=== PATIENT | female | born 1930 ===

== ENCOUNTER 2018-02-03 19:39 | Emergency (ER) | payer MEDICARE, MEDICAID ==
[2018-02-03 19:55] VITALS: BMI 34.0
[2018-02-03 21:27] LABS: BASO % 0.2 % (0.0-2.0); EOS % 0.1 % (0.0-4.0); HEMOGLOBIN 13.7 g/dL (12.0-16.0); LYMPH # 1.2 K/uL (1.0-4.3); LYMPH % 11.2 % (20.0-40.0); MEAN CELL VOLUME 94.9 fl (81.0-99.0); MEAN CORPUSCULAR HGB CONC 32.6 g/dL (33.0-37.0); MEAN PLATELET VOLUME 9.4 fl (7.2-11.7); MONO # 0.8 K/uL (0.0-0.8); MONO % 7.1 % (0.0-10.0); NEUT # 8.7 K/uL (1.8-7.0); NEUT % 81.4 % (50.0-75.0); RBC 4.44 Mil/uL (3.80-5.20); WHITE BLOOD COUNT 10.7 K/uL (4.8-10.8)
[2018-02-03 21:34] LABS: ALB/GLOB RATIO 1.2 (1.0-2.1); ALBUMIN 4.3 g/dL (3.5-5.0); ALT/SGPT 25 U/L (9-52); AST/SGOT 30 U/L (14-36); BLOOD UREA NITROGEN 13 mg/dl (7-17); CALCIUM 9.4 mg/dL (8.4-10.2); GFR NON-AFRICAN AMERICAN > 60; LIPASE 54 U/L (23-300)
--- NOTE | 2018-02-03 21:55 | ED PDOC ---
HPI: Trauma/Fall - HPI Time Seen by Provider: 02/03/18 20:03 Chief Complaint (Nursing): Trauma Chief Complaint (Provider): Trauma History Per: Patient Injury Occurred (Timing): Today @ (14:00) Associated Symptoms: Dizziness. denies: LOC Additional Complaint(s): Zora Garcia is a 87 year old female with a past medical history of HTN, high triglycerides and hypothyroidism, who presents to the emergency department after sustaining a fall associated with headache, right flank pain and mild bilateral leg pain. Patient states she fell down the stairs at 14:00 today while checking the mail. She reports the fall was mechanical and she had no loss of consciousness. Patient states she does have dizziness but no blurry vision, weakness or nausea. She states she applied ice to her left eye due to swelling. PMD: Dr. Lakshmi Farrell Past Medical History Reviewed: Historical Data, Nursing Documentation, Vital Signs Vital Signs: Last Vital Signs Temp 98.9 F 02/03/18 19:54 Pulse 87 02/03/18 19:54 Resp 16 02/03/18 19:54 BP 141/78 02/03/18 19:54 Pulse Ox 95 02/03/18 19:54 - Medical History PMH: Anxiety, HTN, Hypothyroidism - Surgical History Other surgeries: appendectomy, cataracts, cystocele, rectocele - Family History Family History: States: Unknown Family Hx - Social History Current smoker - smoking cessation education provided: No Ex-Smoker (has not smoked in the last 12 months): No Alcohol: None - Allergies Allergies/Adverse Reactions: Allergies Allergy/AdvReac Type Severity Reaction Status Date / Time iodine AdvReac Verified 02/03/18 21:09 Review of Systems ROS Statement: Except As Marked, All Systems Reviewed And Found Negative Eyes: Negative for: Vision Change Gastrointestinal: Positive for: Abdominal Pain (right flank pain ) Musculoskeletal: Positive for: Leg Pain (bilateral ) Neurological: Positive for: Headache, Dizziness. Negative for: Weakness Physical Exam - Reviewed Nursing Documentation Reviewed: Yes Vital Signs Reviewed: Yes - Physical Exam Appears: Positive for: In Acute Distress (mild painful distress) Eye Exam: Positive for: EOMI, Other (large purple hematoma on left perorbital area) Cardiovascular/Chest: Negative for: Chest Non Tender (TTP to right lateral chest wall with no crepitus or step off; tenderness to right flank; no bruising) Respiratory: Positive for: Normal Breath Sounds. Negative for: Respiratory Distress Gastrointestinal/Abdominal: Positive for: Normal Exam, Soft Extremity: Positive for: Other (bilateral faint ecchymosis anterior thighs ) Neurologic/Psych: Positive for: Alert, Oriented (x3) - Laboratory Results Result Diagrams: 02/03/18 21:17 02/03/18 21:17 - ECG O2 Sat by Pulse Oximetry: 95 (RA) Pulse Ox Interpretation: Normal Medical Decision Making Medical Decision Making: Initial Time: 20:29 Initial Impression: Fall with head injury and flank pain. Differential diagnosis includes but not limited to traumatic brain injury, orbital fracture, intra abdominal injury or rib fracture. Initial Plan: --Tylenol 975 mg PO --Saline lock --Ice --chest abd pelvis CT with IV contrast --cervical spine CT without contrast --Maxillofacial without contrast --Head without contrast --CMP --Lipase --CBC with differential CT Head FINDINGS: BRAIN Chronic periventricular and subcortical microvascular disease is seen. VENTRICLES: There is generalized parenchymal atrophy noted as demonstrated by symmetrical dilatation of ventricles and sulci. ORBITS: The orbits are unremarkable. SINUSES AND MASTOIDS: Right maxillary and bilateral ethmoid sinusitis. BONES: No fracture. SOFT TISSUES: Unremarkable. MISCELLANEOUS: Large periorbital and left forehead hematoma. No acute intracranial pathology. IMPRESSION: 1. There is generalized parenchymal atrophy noted as demonstrated by symmetrical dilatation of ventricles and sulci. 2. Chronic periventricular and subcortical microvascular disease is seen. 3. Large periorbital and left forehead hematoma. 4. Right maxillary and bilateral ethmoid sinusitis. 5. No acute intracranial pathology. CT maxillofacial without IV contrast FINDINGS: BONES: No acute fracture or aggressive appearing osseous lesion. The mandible is intact. SOFT TISSUES: Large left periorbital and left forehead hematoma. SINUSES: Right maxillary and bilateral ethmoid sinusitis. ORBITS: The orbits are normal. No retrobulbar hematoma or mass. MISCELLANEOUS: Tiny bubble of air is present anterior to the left globe. IMPRESSION: 1. Large left periorbital and left forehead hematoma. 2. Tiny bubble of air is present anterior to the left globe. 3. Right maxillary and bilateral ethmoid sinusitis. 4. No fracture. CT - Cervical Spine with Contrast COMMENTS: There is no fracture visualized. The paraspinal soft tissues are unremarkable. There are no lytic or blastic lesions. Straightening of cervical lordosis is seen, suggesting muscular spasm. There is evidence of severe multilevel disk disease, most severe at C5-C6, C6-C7, demonstrated by prominent anterior and posterior marginal osteophytosis and endplate sclerosis. IMPRESSION: 1. Multilevel disk pathology most severe at C5-C6, C6-C7. 2. Straightening of cervical lordosis is seen, suggesting muscular spasm. 3. No fracture. Time: 2311 --CT Chest/ABD/pelvis FINDINGS: CHEST: LUNGS: Subpleural 1.5 cm nodular density is present at the right lung apex. 4 mm nodule is present in the anterior segment of right upper lobe medially. Multiple areas of bilateral lung scarring and pleural thickening is seen PLEURAL SPACES: No evidence of pneumothorax. No pleural effusion. HEART: No cardiomegaly. No significant pericardial effusion. LYMPH NODES: No lymphadenopathy is evident. ABDOMEN AND PELVIS: LIVER: Unremarkable. No focal lesions. GALLBLADDER AND BILE DUCTS: The gallbladder appears within normal limits. No radioopaque gallstones are seen. No biliary ductal dilatation is evident. PANCREAS: Unremarkable. SPLEEN: Unremarkable. ADRENAL GLANDS: Unremarkable. KIDNEYS, URETERS, AND BLADDER: Unremarkable. No hydronephrosis or nephrolithiasis. No uterteral or bladder calculi. 2 cm left renal cyst. STOMACH AND BOWEL: Large hiatal hernia is noted. There is diffuse diverticulosis noted involving descending and sigmoid colon. No evidence of acute diverticulitis. APPENDIX: No evidence of acute appendicitis on CT examination. PERITONEUM: No free fluid. No free air. LYMPH NODES: No lymphadenopathy is evident. VASCULATURE: No evidence of abdominal aortic aneurysm. BONES: There are old mild compression fractures involving multiple mid to lower t horacic vertebral bodies. IMPRESSION: 1. Subpleural 1.5 cm nodular density is present at the right lung apex. Consider follow up with contast enhanced Chest CT on a routine basis. 2. 4 mm nodule is present in the anterior segment of right upper lobe medially. 3. Multiple areas of bilateral lung scarring and pleural thickening is seen 4. Large hiatal hernia is noted. 5. There is diffuse diverticulosis noted involving descending and sigmoid colon. No evidence of acute diverticulitis. 6. There are old mild compression fractures involving multiple mid to lower thoracic vertebral bodies. 7. No acute fracture or other acute pathology. Scribe Attestation: Documented by Elier Guzmán, acting as a scribe for Alysia Motley MD. Provider Scribe Attestation: All medical record entries made by the Scribe were at my direction and personally dictated by me. I have reviewed the chart and agree that the record accurately reflects my personal performance of the history, physical exam, medical decision making, and the department course for this patient. I have also personally directed, reviewed, and agree with the discharge instructions and disposition. Disposition - Disposition Condition: STABLE Forms: [facility] (Romans[facility])
[2018-02-04 00:57] VITALS: BP 130/86; PULSE 80; RESP 18; TEMP 97.9; O2SAT 96
--- NOTE | 2018-02-04 10:33 | CT ---
Date of service: 02/03/2018 PROCEDURE: CT HEAD WITHOUT CONTRAST. HISTORY: Head injury COMPARISON: Correlation made with concurrent CT scan maxillofacial skeleton TECHNIQUE: Axial computed tomography images were obtained through the head/brain without intravenous contrast. Radiation dose: Total exam DLP = 933.6 mGy-cm. This CT exam was performed using one or more of the following dose reduction techniques: Automated exposure control, adjustment of the mA and/or kV according to patient size, and/or use of iterative reconstruction technique. FINDINGS: HEMORRHAGE: No intracranial hemorrhage. BRAIN: Chronic periventricular white matter ischemic changes with extension peripherally into the deep and subcortical white matter both cerebral hemispheres. In addition, the there are multiple small chronic appearing bilateral basal nuclei lacunar type infarcts.. No obvious parenchymal nor extra-axial mass or collection. Moderate generalized volume loss. VENTRICLES: No obstructive hydrocephalus. CALVARIUM: No acute calvarial fractures. Large left supraorbital and left frontotemporal scalp contusion. Swelling extends inferiorly into the periorbital and superior premaxillary soft tissues.. Swelling also extends medially over the glabella, bridge of the nose and nasal bones. Note made of hyperostosis frontalis interna. PARANASAL SINUSES: Unremarkable as visualized. No significant inflammatory changes. Medium-sized mucous retention cyst right maxillary sinus. MASTOID AIR CELLS: There is sclerosis and underpneumatized appearance of the inferior mastoid tip OTHER FINDINGS: Changes of bilateral cataract surgery. IMPRESSION: No acute intracranial hemorrhage. Mild chronic white matter and scattered basal nuclei ischemic changes. Moderate generalized volume loss. Moderate-sized left supraorbital/frontotemporal scalp contusion with left-sided facial soft tissue swelling
--- NOTE | 2018-02-04 12:43 | CT ---
Date of service: 02/03/2018 PROCEDURE: CT MAXILLOFACIAL BONES WITHOUT CONTRAST HISTORY: LEFT orbital swelling s/p trauma COMPARISON: Comparison made with concurrent CT scan brain in TECHNIQUE: Contiguous axial CT images of the maxillofacial bones were obtained. Coronal and sagittal reformats were generated. Radiation dose: Total exam DLP = 831.34 mGy-cm. This CT exam was performed using one or more of the following dose reduction techniques: Automated exposure control, adjustment of the mA and/or kV according to patient size, and/or use of iterative reconstruction technique. FINDINGS: NASAL BONES: Unremarkable. ORBITS: Large left supraorbital and left frontotemporal scalp contusion. Swelling extends inferiorly into the periorbital and superior premaxillary soft tissues.. Swelling also extends medially over the glabella, bridge of the nose and nasal bones.. Small bubble of air seen beneath the right medial eyelid. Changes of bilateral cataract surgery again noted. Seen on calcifications at the insertion sites both medial recti musculature PARANASAL SINUSES/ MASTOIDS: Moderately large mucous retention cyst right maxillary antrum. Minimal mucosal thickening noted within the ethmoid air complex extending superiorly into the inferior aspect of the frontal sinus. MAXILLA: Patient is edentulous MANDIBLE/ TEMPOROMANDIBULAR JOINTS: Unremarkable. SKULL BASE: Skull base intact. TEMPORAL BONES: Middle ears and mastoid grossly unremarkable. OTHER FINDINGS: Degenerative spondylosis C1-C2 articulation. IMPRESSION: Large left supraorbital and left frontotemporal scalp contusion. Swelling extends inferiorly into the periorbital and superior premaxillary soft tissues.. Swelling also extends medially over the glabella, bridge of the nose and nasal bones. .
--- NOTE | 2018-02-04 13:02 | CT ---
Date of service: 02/03/2018 PROCEDURE: CT Cervical Spine without contrast HISTORY: Neck pain following fall down stairs and head injury COMPARISON: No prior TECHNIQUE: Axial computed tomography images were obtained of the cervical spine without the use of intravenous contrast. Coronal and sagittal reformatted images were created and reviewed. Radiation dose: Total exam DLP = 378.1 mGy-cm. This CT exam was performed using one or more of the following dose reduction techniques: Automated exposure control, adjustment of the mA and/or kV according to patient size, and/or use of iterative reconstruction technique. FINDINGS: VERTEBRAE: No acute compression fractures no retropulsed fragments. Vertebral bodies exhibit normal stature of. There is straightening of the normal upper cervical lordosis. Minimal posterior subluxation C5 over C6 exacerbated in appearance by an osteophyte arising from the posterior inferior corner of the C5 segment. Vertebral bodies and facets otherwise normally aligned. DISCS/SPINAL CANAL/NEURAL FORAMINA: Multilevel degenerative spondylosis. At the C2-C3 level, there is relatively adequate disc height. No disc herniation or significant disc bulge. The facet joints are hypertrophic right greater than left. Exit foramina are marginal to minimally narrowed on the right and adequate on the left. At the C3-C4 level, there is relatively adequate disc height. No disc herniation however small osteophytic ridge changes are seen arising from the hypertrophic uncovertebral joints. Facets also quite hypertrophic left greater than right. Exit foramina are narrowed bilaterally right greater than left. At the C4-C5 level, there is adequate disc height. No disc herniation. The uncovertebral facet joints are hypertrophic with left-sided foraminal narrowing. Right exit foramen is marginal to adequate.. At the C5-C6 level, there is disc space narrowing with vacuum disc phenomena and endplate eburnation. The uncovertebral joints also hypertrophic left greater than right. Facets are hypertrophic as well also greater on the left. Central canal is slightly narrowed. Exit foramina are narrowed on the left and marginal to slightly narrowed on the right. At the C6-C7 level, there is the disc space narrowing along the posterior disc margin with vacuum disc phenomena endplate eburnation/subchondral cystic changes. Central canal and exit foramina appear adequate. PARASPINAL SOFT TISSUES: Unremarkable. OTHER FINDINGS: Incidental note is made of a lengthy retropharyngeal course of the distal right common carotid artery, carotid bifurcation and proximal internal carotid artery Note also made of aortic atherosclerotic calcifications/mural plaque. IMPRESSION: No acute fractures. Mild straightening of the normal upper cervical lordosis possibly due to patient positioning gantry however underlying element of muscle spasm may contribute. Multilevel degenerative spondylosis on as detailed above.
--- NOTE | 2018-02-04 17:47 | CT ---
Date of service: 02/03/2018 PROCEDURE: CT Chest, Abdomen and Pelvis without intravenous contrast HISTORY: RIGHT chest and flank pain trauma COMPARISON: No prior study study available TECHNIQUE: Radiation dose: Total exam DLP = 955.13 mGy-cm. This CT exam was performed using one or more of the following dose reduction techniques: Automated exposure control, adjustment of the mA and/or kV according to patient size, and/or use of iterative reconstruction technique. FINDINGS: CT CHEST WITHOUT CONTRAST: No prior study available for comparison LUNGS: There are curvilinear chronic atelectasis and or scarring changes seen in the right upper lobe with a localized nodular density along the right lateral pleural surface bordering the medial aspect of the aforementioned atelectasis or scarring. There is a tiny calcifications seen along the scarring change right upper lobe laterally as well in addition, there is an approximately 2.2 x 1.5 cm elliptical shaped soft tissue density within the medial aspect right upper lobe bordering the paraspinal on region that could represent a localized area of atelectasis or chronic granulation scar/granulation tissue. Mild scarring and associated pleural thickening left lingular region as well.. MEDIASTINUM: Unremarkable. Normal caliber aorta and pulmonary arterial trunk. Heart size mildly enlarged. No significant pericardial effusion.. Mild aortic atherosclerotic calcification/mural plaque. LYMPH NODES: No significant on mediastinal adenopathy. Evaluation for hilar adenopathy is limited due to the lack of circulating intravenous contrast material. The trachea is midline and patent. No large central endoluminal lesions are identified within the trachea. There is a moderately large hiatal hernia. PLEURA: No evidence of pneumothorax or pleural effusion BONES: Moderate multilevel degenerative spondylosis of the thoracic spine. Chronic anterior wedge deformities of several mid to lower thoracic segments. OTHER FINDINGS: None. CT ABDOMEN AND PELVIS: LIVER: Unremarkable. No gross lesion or ductal dilatation. GALLBLADDER AND BILE DUCTS: Gallbladder physiologically distended. No evidence of intraluminal gallbladder calculi. PANCREAS: The pancreas slightly atrophic and fatty replaced. SPLEEN: Spleen exhibits normal size and attenuation pattern without mass collection or calcification ADRENALS: No adrenal lesions. KIDNEYS AND URETERS: Kidneys demonstrate relatively symmetric size. No evidence of nephrolithiasis or hydronephrosis. Probable parapelvic cyst or left kidney with small cortical cyst posteromedial aspect midpole right kidney. Follow-up ultrasound could confirm. VASCULATURE: no atherosclerotic calcification or mural plaque present. Unremarkable. No aortic aneurysm. BOWEL: Evaluation of the bowel is somewhat limited due to the lack of oral contrast. Stomach is incompletely distended. Visualized loops of small bowel exhibit normal contour and caliber. No evidence of acute mechanical small bowel obstruction. Extensive diverticular disease. No radiographic evidence to suggest acute diverticulitis. APPENDIX: Appendix not seen with certainty however no obvious on evidence of acute appendicitis. PERITONEUM: Unremarkable. No free fluid. No free air. Small fat containing umbilical hernia. LYMPH NODES: Unremarkable. No enlarged lymph nodes. BLADDER: Urinary bladder incompletely distended which may account for slight thick-walled appearance. Correlation with urinalysis could be performed to exclude cystitis. REPRODUCTIVE: Unremarkable as visualized BONES: Multilevel degenerative spondylosis of the lumbar spine. No acute compression fractures. 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 Follow-up MRI could be performed for further evaluation and confirmation OTHER FINDINGS: Mild aortic atherosclerotic calcification/mural plaque. IMPRESSION: No evidence of acute intra thoracic or intra abdominal posttraumatic sequela. Atelectasis/scarring changes right upper lung apex associated with a pleural based nodular density along the right lateral upper lung field. There is also a elliptical shaped soft tissue density in the right posteromedial upper lobe abutting the paraspinal region. Recommend follow-up CT scan in 2 months to assess stability and exclude underlying lesion. There also scarring changes seen in the lingular region. Bibasilar atelectasis. Moderate size hiatal hernia. Extensive diverticulosis without radiographic evidence of acute diverticulitis. Bilateral renal cysts. See above discussion for additional details and findings. 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 Follow-up MRI could be performed for further evaluation and confirmation
== END 2018-02-03 23:57 | disposition home or self-care (01) ==
LOC: H.ER 19:39
DX: R91.1 Solitary pulmonary nodule (principal); K44.9 Diaphragmatic hernia without obstruction or gangrene; K57.30 Diverticulosis of large intestine without perforation or abscess without bleeding; I10 Essential (primary) hypertension; E03.9 Hypothyroidism, unspecified; Z87.891 Personal history of nicotine dependence; S00.03XA Contusion of scalp, initial encounter; W10.9XXA Fall (on) (from) unspecified stairs and steps, initial encounter